=== PATIENT | female | born 1955 | race Caucasian/White ===

== ENCOUNTER 2018-11-06 19:02 | Emergency (ER) | payer SELFPAY ==
[~2018-11-06] VITALS: Ht 162.5 cm; Wt 99.8 kg
[~2018-11-06 19:02] MED LIST: ALDACTONE25 MG PO; ASPIR-TRIN325 MG PO; ATENOLOL25 MG PO; CATAFLAM50 MG PO; CIPROFLOXACIN500 MG PO; COREG12.5 MG PO; DIOVAN HCT 25 M1 TA1 PO; FLEXERIL10 MG PO; HYDROCODONE BIT1 T11 PO; LISINOPRIL/HCTZ1 TA1 PO; Motrin,Rufen800 MG PO; NAPROSYN500 MG PO; NORCO 5-325 TA1 EACH PO; TOPROL XL50 MG PO; VIBRAMYCIN100 MG PO; ZOFRAN ODT4 MG SL
[2018-11-06 21:42] VITALS: BP 146/77
== END 2018-11-06 21:46 | disposition home or self-care (01) ==
LOC: ED 19:02
DX: S63.501A Unspecified sprain of right wrist, initial encounter (principal); Z88.0 Allergy status to penicillin; Z88.7 Allergy status to serum and vaccine; Z79.82 Long term (current) use of aspirin; Z79.899 Other long term (current) drug therapy; Z87.442 Personal history of urinary calculi; X50.9XXA Other and unspecified overexertion or strenuous movements or postures, initial encounter; Y93.89 Activity, other specified; Y92.89 Other specified places as the place of occurrence of the external cause; Y99.8 Other external cause status